=== PATIENT | male | born 2000 ===

== ENCOUNTER 2023-01-26 12:12 | Emergency (ER) | payer MEDICAID, SELFPAY ==
[2023-01-26 12:21] VITALS: BP 124/58; PULSE 57; RESP 18; TEMP 36.7; O2SAT 99; BMI 24.3
--- NOTE | 2023-01-26 12:21 | ED_ITS ---
HPI - General Adult General Chief complaint: Urogenital-Male Stated complaint: Testicular Pain Time Seen by Provider: 01/26/23 18:19 Related Data Allergies Allergy/AdvReac Type Severity Reaction Status Date / Time No Known Allergies Allergy Verified 01/26/23 12:23 [facility] Social History Social History Advance Directives: No Advance Directives Information Provided: No Physical Exam ED Vital Signs: Vital Signs - 24 hr 01/26/23 12:21 Temperature 98.0 F Pulse Rate 57 Respiratory Rate 18 Blood Pressure 124/58 L Pulse Oximetry 99 Oxygen Delivery Method Room Air BMI result Body Mass Index 24.3 Course Course Course Narrative: This is a rapid medical exam: Additional HPI, ROS, PE not included below will be deferred to primary provider. Patient is a 22-year-old male presenting to the emergency department with complaint of bilateral testicular pain for the past week. Rates pain at 4-5/10. States was seen at urgent care 2 days ago and was told to take ibuprofen, denies any testing there. He denies any erythema, swelling, penile discharge. Denies abdominal pain, nausea, or vomiting. Does report recent unprotected sex. Area not visualized in triage due to privacy concerns. Plan: UA, CT NG urine Discharge Plan Discharge Clinical Impression: Pain in both testicles Patient Disposition: Left W/O Completing Treatment Discharge Date/Time: 01/26/23 18:19
== END 2023-01-26 18:19 | disposition left against medical advice (07) ==
PROVIDERS: Emergency Provider Emergency Medicine
DX: N50.811 Right testicular pain (principal); N50.812 Left testicular pain
CPT/HCPCS: 99281